=== PATIENT | female | born 1965 | race African-American/Black ===

== ENCOUNTER 2023-10-25 11:52 | Inpatient (IN) | payer MEDICAID ==
[~2023-10-25] VITALS: Ht 167.6 cm; Wt 137.9 kg
[2023-10-25] MEDS: TENECTEPLASE 50MG/VIAL IV SCH (12:40)
[2023-10-25] MEDS ORDERED: *TENECTEPLASE FOR AIS XX SCH (12:45)
[2023-10-25 13:05] LABS: BASOPHILS % 0.7 % (0.0-2.0); EOSINOPHILS % 1.8 % (0.0-5.0); HEMOGLOBIN. 14.3 g/dL (12.0-16.0); MEAN CORPUSCULAR HEMOGLOBIN 28.3 pg (28.0-32.0); MEAN CORPUSCULAR HGB CONC 32.6 g/dL (31.0-37.0); MEAN CORPUSCULAR VOLUME 86.8 fL (81.0-99.0); MEAN PLATELET VOLUME 8.4 fl (7.4-10.4); MONOCYTES % 7.6 % (2.0-8.0); NEUTROPHILS % 53.9 % (40.0-76.0); PLATELET 283 x1000/uL (130-400); RED BLOOD CELL COUNT 5.07 mill/uL (4.2-5.4); RED CELL DISTRIBUTION WIDTH 15.1 % (11.6-14.6); WHITE BLOOD COUNT 9.2 x1000/uL (4.5-11.0)
[2023-10-25 13:10] LABS: CLARITY URINE CLEAR (CLEAR); COLOR URINE YELLOW (YELLOW); GLUCOSE URINE 3+ (NEGATIVE); KETONES URINE NEGATIVE (NEGATIVE); LEUKOCYTE ESTERASE URINE NEGATIVE (NEGATIVE); NITRITE URINE NEGATIVE (NEGATIVE); OCCULT BLOOD URINE NEGATIVE (NEGATIVE); PH URINE 5.5 (4.5-8.0); PROTEIN URINE 1+ (NEGATIVE); SPECIFIC GRAVITY URINE 1.039 (1.005-1.030); UROBILINOGEN URINE 0.2 E.U./dL (0.2-1.0)
[2023-10-25 13:20] LABS: ALANINE AMINOTRANSFERASE 8 IU/L (10-49); ALBUMIN 4.8 g/dL (3.2-4.8); ASPARTATE AMINOTRANSFERASE 19 IU/L (<34); BILIRUBIN TOTAL 0.6 mg/dL (0.1-1.0); CALCIUM 9.5 mg/dL (8.7-10.4); CARBON DIOXIDE 26 mEq/L (21-32); CHLORIDE 101 mEq/L (98-107); GLUCOSE 183 mg/dL (70-105); POTASSIUM 3.9 mEq/L (3.5-5.1); PROTEIN TOTAL 9.2 g/dL (6.0-8.3); SODIUM 135 mEq/L (136-145); UREA NITROGEN BLOOD 14 mg/dL (9-23)
[2023-10-25 13:31] LABS: ETHANOL BLOOD < 10 mg/dL (<10)
[2023-10-25 13:41] LABS: BACTERIA URINE 1+; SQUAMOUS EPITHELIAL CELL URINE 3+ /lpf (RARE/1+)
[2023-10-25 13:42] LABS: WBC URINE 0-2 /hpf (0-2)
[2023-10-25 13:44] LABS: RBC URINE NONE SEEN /hpf (0-2)
[2023-10-25 13:57] LABS: *AMPHETAMINES SCREEN URINE NEGATIVE (NEGATIVE); *BARBITURATES SCREEN URINE NEGATIVE (NEGATIVE); *BENZODIAZEPINES SCREEN URINE NEGATIVE (NEGATIVE); *COCAINE SCREEN URINE NEGATIVE (NEGATIVE); CANNABINOID URINE SCREEN NEGATIVE (NEGATIVE); ECSTASY MDMA SCREEN URINE NEGATIVE (NEGATIVE); METHADONE URINE SCREEN Neg (NEGATIVE); OPIATES URINE SCREEN NEGATIVE (NEGATIVE); PHENCYCLIDINE URINE SCREEN NEGATIVE (NEGATIVE)
[2023-10-25 14:01] LABS: INR 0.9; PROTHROMBIN TIME 10.6 sec (9.6-11.0)
[2023-10-25] MEDS: IOHEXOL-350 100 ML BOTTLE ONE (14:01)
[2023-10-25] MEDS ORDERED: ONDANSETRON HCL 4MG/2ML INJ IV PRN (14:30)
[2023-10-25] MEDS ORDERED: IPRATROPIUM/ALBUTEROL 0.5-3(2.5)MG/3ML NEB HHN PRN (14:30)
[2023-10-25] MEDS ORDERED: DEXTROSE 50% WATER 50ML SYRINGE IV PRN (14:30)
[2023-10-25] MEDS: PANTOPRAZOLE SODIUM 40 MG/VIAL IV SCH (14:55)
[2023-10-25 14:56] LABS: PHOSPHORUS 3.1 mg/dL (2.5-4.9)
[2023-10-25] MEDS: SODIUM CHLORIDE 0.9% 1,000 ML IV SCH (15:00)
[2023-10-25] MEDS: BLOOD SUGAR DIAGNOSTIC STRIP TEST SCH (17:55)
[2023-10-25] MEDS: INSULIN LISPRO 100 UNITS/ML SUBCUT SCH (17:56)
[2023-10-25] MEDS: ATORVASTATIN CALCIUM 40MG TABLET PO SCH (21:00)
[2023-10-25 23:40] VITALS: BP 125/82; PULSE 72
[2023-10-25 23:46] VITALS: BP 146/106; PULSE 58; RESP 14; TEMP 98.2
[2023-10-25 23:46] LABS: CREATINE KINASE 113 IU/L (34-145); TROPONIN I HIGH SENSITIVITY 6 ng/L (3.0-34)
[2023-10-26] VITALS (63 sets, daily range): BP systolic 112–175; BP diastolic 69–114; PULSE 63–106; RESP 7–46; TEMP 97–98.2
[2023-10-26 05:59] LABS: BASOPHILS % 0.6 % (0.0-2.0); EOSINOPHILS % 2.4 % (0.0-5.0); HEMATOCRIT. 39.1 % (36.0-48.0); LYMPHOCYTES % 38.8 % (20.0-50.0); MEAN CORPUSCULAR HEMOGLOBIN 28.8 pg (28.0-32.0); MEAN CORPUSCULAR HGB CONC 33.1 g/dL (31.0-37.0); MEAN CORPUSCULAR VOLUME 86.9 fL (81.0-99.0); MEAN PLATELET VOLUME 8.2 fl (7.4-10.4); MONOCYTES % 7.9 % (2.0-8.0); NEUTROPHILS % 50.3 % (40.0-76.0); PLATELET 248 x1000/uL (130-400); RED CELL DISTRIBUTION WIDTH 14.7 % (11.6-14.6); WHITE BLOOD COUNT 6.9 x1000/uL (4.5-11.0)
[2023-10-26 06:17] LABS: CREATINE KINASE 105 IU/L (34-145); TROPONIN I HIGH SENSITIVITY 6 ng/L (3.0-34)
[2023-10-26 06:19] LABS: ALANINE AMINOTRANSFERASE 8 IU/L (10-49); ASPARTATE AMINOTRANSFERASE 16 IU/L (<34); BILIRUBIN TOTAL 0.9 mg/dL (0.1-1.0); CALCIUM 8.7 mg/dL (8.7-10.4); CARBON DIOXIDE 28 mEq/L (21-32); CHLORIDE 105 mEq/L (98-107); CHOLESTEROL 185 mg/dL (<200); CREATININE 0.8 mg/dL (0.6-1.0); GLUCOSE 130 mg/dL (70-105); HDL CHOLESTEROL 33 mg/dL (>65); LDL CHOLESTEROL 146 mg/dL (5-100); PHOSPHORUS 3.8 mg/dL (2.5-4.9); POTASSIUM 3.6 mEq/L (3.5-5.1); PROTEIN TOTAL 7.7 g/dL (6.0-8.3); SODIUM 136 mEq/L (136-145); T4 FREE 0.91 ng/dL (0.89-1.76); THYROID STIMULATING HORMONE 0.92 uIU/mL (0.55-4.78); TRIGLYCERIDE 116 mg/dL (0-150); UREA NITROGEN BLOOD 11 mg/dL (9-23)
[2023-10-26] MEDS: AMLODIPINE 5MG TABLET PO SCH (18:19)
[2023-10-27] VITALS: BP_SYST 133; BP_SYST 158; BP_DIAS 77; BP_DIAS 81; PULSE 74; PULSE 90; RESP 18; TEMP 96.6
[2023-10-27 04:00] VITALS: BP 121/73; PULSE 85; RESP 19; TEMP 97.5
[2023-10-27 06:35] LABS: HEMATOCRIT 40.1 % (36.0-48.0); HEMOGLOBIN 13.3 g/dL (12.0-16.0); MEAN CORPUSCULAR HEMOGLOBIN 28.8 pg (28.0-32.0); MEAN CORPUSCULAR HGB CONC 33.2 g/dL (31.0-37.0); MEAN CORPUSCULAR VOLUME 86.7 fL (81.0-99.0); PLATELET 278 x1000/uL (130-400); RED BLOOD CELL COUNT 4.63 mill/uL (4.2-5.4); RED CELL DISTRIBUTION WIDTH 14.9 % (11.6-14.6); WHITE BLOOD COUNT 7.4 x1000/uL (4.5-11.0)
[2023-10-27 07:11] LABS: CALCIUM 9.2 mg/dL (8.7-10.4); CARBON DIOXIDE 22 mEq/L (21-32); CHLORIDE 102 mEq/L (98-107); CREATININE 0.9 mg/dL (0.6-1.0); GLUCOSE 251 mg/dL (70-105); PHOSPHORUS 3.8 mg/dL (2.5-4.9); POTASSIUM 4.3 mEq/L (3.5-5.1); SODIUM 134 mEq/L (136-145); UREA NITROGEN BLOOD 16 mg/dL (9-23)
[2023-10-27 12:00] VITALS: BP 124/100; PULSE 94; RESP 20; TEMP 98.1
[2023-10-27 16:00] VITALS: BP 131/81; PULSE 62; RESP 20; TEMP 98.1
[2023-10-27] MEDS: CLOPIDOGREL 75MG TABLET PO SCH (19:00)
[2023-10-27] MEDS: ASPIRIN 81MG TABLET PO SCH (19:00)
[2023-10-27 20:00] VITALS: BP 140/85; PULSE 73; RESP 20; TEMP 97.8
[2023-10-27 21:02] LABS: FOLIC ACID (FOLATE) SERUM 13.25 ng/mL (>5.38); VITAMIN B12 SERUM 329 pg/mL (211-911)
[2023-10-27 21:03] LABS: T4 FREE 0.95 ng/dL (0.89-1.76)
[2023-10-28] VITALS: BP 123/80; PULSE 85; RESP 20; TEMP 98.2
[2023-10-28 04:00] VITALS: BP 136/84; PULSE 87; RESP 20; TEMP 97.4
[2023-10-28 08:00] VITALS: BP 139/110; PULSE 83; RESP 19; TEMP 97.7
[2023-10-28 09:00] VITALS: BP 139/110; PULSE 83
[2023-10-28] MEDS: INSULIN GLARGINE 100 UNITS/ML SUBCUT SCH (09:45)
[2023-10-28 11:07] LABS: CALCIUM 8.7 mg/dL (8.7-10.4); CARBON DIOXIDE 27 mEq/L (21-32); CHLORIDE 104 mEq/L (98-107); CREATININE 0.9 mg/dL (0.6-1.0); GLUCOSE 241 mg/dL (70-105); PHOSPHORUS 3.4 mg/dL (2.5-4.9); POTASSIUM 3.7 mEq/L (3.5-5.1); SODIUM 138 mEq/L (136-145); UREA NITROGEN BLOOD 16 mg/dL (9-23)
[2023-10-28 12:00] VITALS: BP 128/94; PULSE 81; RESP 20; TEMP 98.6
[2023-10-28] MEDS ORDERED: ASPI-1160 PO (12:48)
[2023-10-28] MEDS ORDERED: CLOP-31 PO (12:48)
[2023-10-28 14:13] VITALS: BP 128/96; PULSE 81; TEMP 98.6; O2SAT 94
[2023-11-01 14:08] LABS: ANTI-CARDIOLIPIN AB IGA < 9 APL U/mL (0-11); ANTI-CARDIOLIPIN AB IGG < 9 GPL U/mL (0-14); ANTI-CARDIOLIPIN AB IGM < 9 MPL U/mL (0-12)
[2023-11-02 04:09] LABS: ANTI-THROMBIN ACTIVITY 106 % (75-135); PROTEIN C FUNCTIONAL 153 % (73-180)
== END 2023-10-28 18:00 | disposition home health service (06) | DRG 45 ==
LOC: ER 12:31 → MICUSO 13:04 → EDBEDREQ 13:08 → 7WST 10-27 01:14
PROVIDERS: ADMIT Preventive Medicine Clinical Informatics; ATTEND Preventive Medicine Clinical Informatics
DX: I63.9 Cerebral infarction, unspecified (principal); G92.8 Other toxic encephalopathy; G81.91 Hemiplegia, unspecified affecting right dominant side; R47.01 Aphasia; R29.709 NIHSS score 9; I11.0 Hypertensive heart disease with heart failure; R47.1 Dysarthria and anarthria; I50.9 Heart failure, unspecified; E11.9 Type 2 diabetes mellitus without complications; Z79.02 Long term (current) use of antithrombotics/antiplatelets; Z79.84 Long term (current) use of oral hypoglycemic drugs
CPT/HCPCS: 36415; 70496; 70498; 70551; 71045; 80048; 80053; 80061; 80305; 80320; 81003; 81400; 81403; 81407; 81479; 82550; 82607; 82746; 82962; 83036; 83721; 83735; 84100; 84439; 84443; 84481; 84484; 85025; 85027; 85300; 85303; 85306; 86147; 92523; 93005; 93306; 93970; 97116; 97162; 97166; 97530; 97535; 99291; C9113; J1815; J2997; Q9967; G0480